=== PATIENT | male | born 1945 | race Caucasian/White ===

== ENCOUNTER → 2021-01-04 13:22 | Outpatient (BNVA) | payer MEDICARE, OTHER, SELFPAY | PROVIDERS: Visit Provider Orthopaedic Surgery | DX: M54.2 Cervicalgia (principal); M47.892 Other spondylosis, cervical region | CPT/HCPCS: 72050 ==

== ENCOUNTER → 2021-01-12 11:14 | Outpatient (BNVA) | payer MEDICARE, OTHER, SELFPAY | PROVIDERS: Visit Provider Orthopaedic Surgery | DX: Z01.812 Encounter for preprocedural laboratory examination (principal); Z20.822 Contact with and (suspected) exposure to COVID-19 | CPT/HCPCS: 87635 ==

== ENCOUNTER → 2021-01-12 13:10 | Day surgery (SDC) | payer MEDICARE, OTHER, SELFPAY | PROVIDERS: Visit Provider Orthopaedic Surgery | DX: Z01.818 Encounter for other preprocedural examination (principal); Z20.822 Contact with and (suspected) exposure to COVID-19 | CPT/HCPCS: 80053; 85025; 93005 ==

== ENCOUNTER 2021-01-19 10:33 | Inpatient (IN) | payer MEDICARE, OTHER, SELFPAY ==
[2021-01-12 12:08] VITALS: BMI 23.6
--- NOTE | 2021-01-12 13:10 | ECG_ITS ---
[facility] Test Date: 2021-01-12 Pat Name: Brian Loza Department: Room: Gender: Male Application Analyst: : 1945 Requested By: Harley Dale Order Number: [id number] Reading MD: TIMOTHY OCHOA Measurements Intervals Rose Rate: 49 P: 65 VA: 221 QRS: 9 QRSD: 141 T: 30 QT: 463 QTc: 419 Interpretive Statements SINUS BRADYCARDIA WITH FIRST DEGREE AV BLOCK WITH OCCASIONAL SUPRAVENTRICULAR PREMATURE COMPLEXES RIGHT BUNDLE BRANCH BLOCK [120+ ms QRS DURATION, UPRIGHT V1, 40+ ms S IN I/aVL/V4/V5/V6] No previous ECG available for comparison Electronically Signed On 01-13-2021 20:25:01 CDT by TIMOTHY COHOA [email or web address]
[2021-01-12 13:57] LABS: Basophils # 0.1 10^3/uL (0.0-0.1); Basophils % 0.7 %; Eosinophils # 0.3 10^3/uL (0.0-0.8); Eosinophils % 4.1 %; Hematocrit 33.5 % (42.0-52.0); Hemoglobin 10.9 g/dL (11.7-16.6); Lymphocytes # 1.6 10^3/uL (0.8-4.8); Lymphocytes % 21.6 %; Mean Corpuscular HGB Conc 32.5 g/dL (30.0-36.0); Mean Corpuscular Volume 98.2 fL (80-94); Mean Platelet Volume 11.8 fL (7.4-10.4); Monocytes # 0.6 10^3/uL (0.2-0.9); Monocytes % 8.1 %; Neutrophils % 65.2 %; Nucleated Red Blood Cells % 0 %; Platelet Count 186 10^3/cmm (130-400); Red Blood Count 3.41 10^6/uL (4.1-5.3); White Blood Count 7.5 10^3/uL (4.0-10.0)
[2021-01-12 14:29] LABS: Alanine Aminotransferase 14 U/L (0-41); Albumin Level 4.3 g/dL (3.5-5.2); Alkaline Phosphatase 55 IU/L (40-130); Anion Gap 13.8 (5-19); Aspartate Amino Transferase 15 U/L (0-40); Blood Urea Nitrogen 25 mg/dL (8-23); Calcium 8.7 mg/dL (8.5-10.5); Carbon Dioxide 24 mmol/L (22-29); Chloride 107 mmol/L (98-107); Globulin 2.3 g/dL (1.3-4.6); Glucose 74 mg/dL (65-115); Osmolality Calculated 293 mOsm/kg (285-295); Potassium 4.8 mmol/L (3.5-5.1); Sodium 140 mmol/L (136-145); Total Bilirubin 0.4 mg/dL (0.15-1.2); Total Protein 6.6 g/dL (6.6-8.7)
--- NOTE | 2021-01-12 15:57 | ANES.PREANE2 ---
Pre-Anesthetic Assessment Pre-Anesthetic Assessment: Height/Weight: Height 1.75 m Weight 72.575 kg Preop Diagnosis: cervical spondylosis with myelopathy Proposed Procedure: Operation Date: 01/19/21 07:00 Proposed Procedures p ACDF 10/12 11/13 12/14 85331, 37443, 19989, 09358, 98002 M47.12(Not Applicable) - Harley Robertson, DO Was Beta Jennifer taken within 24 hours: Yes Was Clonidine taken within 24 hours: N/A Social: Social History: No alcohol and No tobacco Exam: Pre-Anes Outpt Exam: alert, oriented x 3, clear to auscultation bilaterally and regular rate & rhythm Airway: Submandibular: WNL Cervical ROM: WNL MP: 2 Dentition: False (upper) CV/HEM: CV/HEM: CAD and HTN Comments: Good functional status Anesthetic Plan: ASA status: 3 Anesthesia: General Risk of > 500 ml blood loss (7ml/kg in children): No PFSH Anesthesia PFSH: Social History (Updated 01/04/21 @ 13:59 by Pedro Randolph LPN) Smoking and tobacco status: current every day smoker Data Anesthesia CBC & Chem 7: 01/12/21 12:40 01/12/21 12:40 Other Labs: Laboratory Results - last 48 hr 01/12/21 01/12/21 12:40 12:40 WBC 7.5 RBC 3.41 L Hgb 10.9 L Hct 33.5 L MCV 98.2 H MCH 32.0 MCHC 32.5 RDW 13.0 Plt Count 186 MPV 11.8 H Neut % (Auto) 65.2 Lymph % (Auto) 21.6 [place] % (Auto) 8.1 Eos % (Auto) 4.1 Baso % (Auto) 0.7 Neut # (Auto) 4.90 Lymph # (Auto) 1.6 [place] # (Auto) 0.6 Eos # (Auto) 0.3 Baso # (Auto) 0.1 Nucleated RBC % (auto) 0 Nucleated RBCs # 0.0 Sodium 140 Potassium 4.8 Chloride 107 Carbon Dioxide 24 Anion Gap 13.8 BUN 25 H Creatinine 0.9 GFR Calculation Not Reportable Glucose 74 Calculated Osmolality 293 Calcium 8.7 Total Bilirubin 0.4 AST 15 ALT 14 Alkaline Phosphatase 55 Total Protein 6.6 Albumin 4.3 Globulin 2.3 Cardiac Studies: No Data to Display
[2021-01-19] VITALS (17 sets, daily range): BP systolic 139–188; BP diastolic 62–98; PULSE 50–65; RESP 15–20; TEMP 36.3–36.9; O2SAT 95–100
--- NOTE | 2021-01-19 | XR_ITS ---
WS: [id number] Cervical spine, C-arm fluoroscopy, 01/19/2021 Clinical Data: acdf 10/12 11/13 12/14 Comparison: Cervical spine, 01/04/2021. Findings: Patient has an anterior cervical disc fusion from C3 through C6. Artificial disc spacers [place] ve been placed at C3-C4, C4-C5 and C5-C6. XR/XR cervical spine 3V* 36591 Impression: Anterior cervical disc fusion from C3 through C6.
--- NOTE | 2021-01-19 | SCC_ITS ---
Procedure Done: 1. Anterior diskectomy C3/4 2. Anterior discectomy C4/5 3. Anterior discetomy C5/6 4. Insertion of cage C3/4 3. Insertion of cage C4/5 4. Insertion of Cage C5/6 5. Instrumentation with anterior plate from C3-6 6. Use of allograft 39.3 seconds of fluoroscopic guidance, for a cumulative dose of 2.54 mGy, was provided to Dr. Robertson by the radiology department. C-arm images of the cervical spine were saved for the patient's permanent record. LILLIAM
[2021-01-19] MEDS: sodium chloride 0.9% 1,000 ML 30 ML IV (06:18)
--- NOTE | 2021-01-19 06:52 | W.PM.OPSUD ---
Surgery/Procedure H&P Update DATE OF PROCEDURE: January 19, 2021 DATE H&P PERFORMED: 01/04/21 H&P UPDATE INFORMATION: I have reviewed H&P completed within last 30 days, I have examined patient prior to procedure and No changes to prior documentation PREOP DIAGNOSIS: cervical spondylosis with myelopathy PLANNED PROCEDURE: Operation Date: 01/19/21 07:00 Proposed Procedures p ACDF 10/12 11/13 12/14 20669, 68135, 24990, 75435, 35121 M47.12(Not Applicable) - Harley Robertson DO
--- NOTE | 2021-01-19 10:16 | PM.OP ---
Operative Report Date of procedure: January 19, 2021 Pre-op Diagnosis: cervical spondylosis with myelopathy Post-op diagnosis: same Procedure Done: 1. Anterior diskectomy C3/4 2. Anterior discectomy C4/5 3. Anterior discetomy C5/6 4. Insertion of cage C3/4 3. Insertion of cage C4/5 4. Insertion of Cage C5/6 5. Instrumentation with anterior plate from C3-6 6. Use of allograft Anesthesia: General Estimated blood loss (mL): 25 Condition: stable Disposition: PACU Procedure: The patient was taken to the operating room, where he underwent general endotracheal anesthesia without complications. He was then positioned supine on the operating table, and all areas of impingement were well padded. The arms were carefully padded and tucked at his sides. A roll was placed between the shoulder blades.. An x-ray was done to determine the appropriate level for the skin incision. The entire neck was then sterilely prepped and draped in the usual fashion. Neuromonitoring was attached prior to prepping. A transverse skin incision was made and carried down to the platysma muscle. This was then split in line with its fibers. Blunt dissection was carried down medial to the carotid sheath and lateral to the trachea and esophagus until the anterior cervical spine was visualized. A needle was placed into a disc and an x-ray was done to determine its location. The longus colli muscles were then elevated bilaterally with the electrocautery unit. Self-retaining retractors were placed deep to the longus colli muscle. Attention was brought to the C3/4 level that was confirmed on x-ray. The microscope was then brought in. A radical anterior discectomies were performed at C3/4. This included complete removal of the anterior annulus, nucleus, and posterior annulus. The posterior longitudinal ligament was removed as were the posterior osteophytes. Foraminotomies were then accomplished bilaterally. This was done using a high speed isha, kerrison rongeurs and curretes Once all of this was accomplished, the curved currette was used to check for any residual compression. The central canal was wide open as were the foramen. A high-speed bur was used to remove the cartilaginous endplates above and below the interspace. Bleeding cancellous bone was exposed. The disc space were measured and appropriate size cage were placed sterilely onto the field. Allograft graft was packed into the cages. The cage was then placed and there was good juxtaposition against the bleeding decorticated surfaces and good distraction of each interspace. Attention was brought to the next interspace. Attention was brought to the C4/5 level that was confirmed on x-ray. A caspar pin was placed into the C4 vertebrae and the C5 vertebrae. The disk space was then distracted. The microscope was then brought in. A radical anterior discectomies were performed at C4/5. This included complete removal of the anterior annulus, nucleus, and posterior annulus. The posterior longitudinal ligament was removed as were the posterior osteophytes. Foraminotomies were then accomplished bilaterally. This was done using a high speed isha, kerrison rongeurs and curretes Once all of this was accomplished, the curved currette was used to check for any residual compression. The central canal was wide open as were the foramen. A high-speed bur was used to remove the cartilaginous endplates above and below the interspace. Bleeding cancellous bone was exposed. The disc space were measured and appropriate size cage were placed sterilely onto the field. Allograft graft was packed into the cages. The cage was then placed and there was good juxtaposition against the bleeding decorticated surfaces and good distraction of each interspace. Attention was brought to the next interspace. Attention was brought to the C5/6 level that was confirmed on x-ray. A caspar pin was placed into the C5 vertebrae and the C6 vertebrae. The disk space was then distracted. The microscope was then brought in. A radical anterior discectomies were performed at C5/6. This included complete removal of the anterior annulus, nucleus, and posterior annulus. The posterior longitudinal ligament was removed as were the posterior osteophytes. Foraminotomies were then accomplished bilaterally. This was done using a high speed isha, kerrison rongeurs and curretes Once all of this was accomplished, the curved currette was used to check for any residual compression. The central canal was wide open as were the foramen. A high-speed bur was used to remove the cartilaginous endplates above and below the interspace. Bleeding cancellous bone was exposed. The disc space were measured and appropriate size cage were placed sterilely onto the field. Allograft graft was packed into the cages. The cage was then placed and there was good juxtaposition against the bleeding decorticated surfaces and good distraction of each interspace. Attention was brought to the next interspace. The [place] pins were removed. Bone wax was used to prevent any bleeding from occurring at the pin sites. The appropriate size anterior cervical locking plate was chosen and bent into gentle lordosis. Two screws were then placed into each of the vertebral bodies at C3 and C4 and C5 and C6. There was excellent purchase. A final x-ray was done confirming good position of the hardware and Cages. The locking screws were then applied, also with excellent purchase. Following a final copious irrigation, there was good hemostasis and no dural leaks. The carotid pulse was strong. The wounds were then closed in layers using 2-0 Vicryl suture for the platysma muscle, 2-0 Vicryl suture for the subcutaneous tissue, and 4-0 monocryl suture in a subcuticular skin closure. Glue was placed followed by application of a sterile dressing. The drain was hooked to bulb suction. A soft collar was applied. The patient was then carefully returned to the supine position on his hospital bed where he was reversed and extubated and taken to the recovery room having tolerated the procedure well.
[2021-01-19] MEDS: lactated ringers 1,000 ML 90 ML IV ×2 (11:03→22:51)
[2021-01-19] MEDS: ketorolac 30 mg/mL INJ IVP ×2 (12:25→22:54)
[2021-01-19] MEDS: HYDROcodone-acetaminophen 5-325 mg Tablet PO ×2 (13:59→17:27)
[2021-01-20] VITALS (7 sets, daily range): BP systolic 108–178; BP diastolic 62–72; PULSE 56–66; RESP 14–20; TEMP 36.3–37.4; O2SAT 93–96
--- NOTE | 2021-01-20 07:32 | PC.NURSE ---
Patient has been confused and disoriented through the night.
--- NOTE | 2021-01-20 08:04 | PM.PN ---
Subjective Subjective: Interval history: Patient is somewhat confused this morning. But is acting appropriately. He was unsure of where he was with the nurse started questioning him initially. He is answering my questions appropriately in the room. He was able ambulate last night he has some swallowing issues at this point. Vitals/I&O/Wt Last Vital Signs Temp 98.5 F 01/20/21 04:00 Pulse 63 01/20/21 04:00 Resp 16 01/20/21 04:00 BP 146/68 01/20/21 04:00 Pulse Ox 94 01/20/21 04:00 01/19/21 01/20/21 01/20/21 22:59 06:59 14:59 Intake Total 1170 / 2220 50 / 2270 50 / 50 Balance 1170 / 2170 50 / 2220 50 / 50 Physical Exam Narrative: EXAM NARRATIVE: Patient states that the symptoms he is having at this point to have difficulty with some swallowing he was able eat some food last night. The J collar is in place. Data : 01/12/21 12:40 01/12/21 12:40 A&P Assessment and plan (1) Cervical stenosis of spinal canal: Patient is postop day 1 C3-4 C4-5 C5-6 ACDF. We will plan to discharge if he is able to eat breakfast and get up with physical therapy and feels comfortable taking him home. Status: Acute Attestations Medical Necessity Statement*: Patient is okay to discharge from my standpoint if he is able to get up with therapy this morning any breakfast. Coding Level of Care Code Acute Ceramic Sprayer for Jessika Landis Diagnoses Cervical stenosis of spinal canal M48.02
[2021-01-20] MEDS: ketorolac 30 mg/mL INJ IVP ×2 (08:37→17:30)
[2021-01-20] MEDS: ondansetron 2 mg/ML SDV 2 mL 4 MG IVP (08:37)
[2021-01-20] MEDS: docusate sodium 100 mg Capsule PO (08:37)
[2021-01-20] MEDS: cetylpyridinium Lozenge 1 EACH MUCOUS MEM (16:20)
[2021-01-20] MEDS: lactated ringers 1,000 ML 90 ML IV (16:24)
[2021-01-20] MEDS: morphine 4 mg/mL SDV 1 mL 2 MG IVP (20:17)
[2021-01-21] VITALS (8 sets, daily range): BP systolic 156–190; BP diastolic 63–80; PULSE 59–73; RESP 16–19; TEMP 37.2–37.7; O2SAT 90–95
[2021-01-21] MEDS: lactated ringers 1,000 ML 90 ML IV ×2 (03:08→14:59)
[2021-01-21] MEDS: morphine 4 mg/mL SDV 1 mL 2 MG IVP (04:26)
--- NOTE | 2021-01-21 08:54 | PC.NURSE ---
Rcvd order from Dr Robertson to crush meds and pureed diet. conventional mortgage underwriter put orders in.
--- NOTE | 2021-01-21 08:55 | PC.NURSE ---
rcvd verbal okay for collar to be off while laying and sitting and on while walking from Dr Robertson.
--- NOTE | 2021-01-21 09:02 | P.PN_ITS ---
Subjective Subjective: Interval history: patient is having increased secretions, able to swallow water Vitals/I&O/Wt Last Vital Signs Temp 99.1 F 01/21/21 08:00 Pulse 73 01/21/21 08:00 Resp 18 01/21/21 08:00 BP 158/80 01/21/21 08:00 Pulse Ox 90 01/21/21 08:00 01/20/21 01/21/21 01/21/21 22:59 06:59 14:59 Intake Total 1079 966 / 2045 Balance 1079 6 / 2045 Physical Exam Narrative: EXAM NARRATIVE: 12/13 strength Data : 01/12/21 12:40 01/12/21 12:40 A&P Assessment and plan (1) Cervical stenosis of spinal canal: difficulty swallowing and increased secretions switch to puried diet stop morphine crush up hydrocodone ok to take collar off while sitting or in bed Status: Acute Attestations Medical Necessity Statement*: difficulty swallowing Coding Level of Care Code Acute Pole Incisor Operator for Jessika Landis Diagnoses Cervical stenosis of spinal canal M48.02
[2021-01-21] MEDS: aspirin 81 mg EC Tablet PO (10:03)
[2021-01-21] MEDS: atorvastatin 40 mg Tablet PO (10:04)
[2021-01-21] MEDS: metoprolol succinate ER (24 HR) 25 mg Tablet PO (10:04)
[2021-01-21] MEDS: docusate sodium 100 mg Capsule PO ×2 (10:04→17:11)
[2021-01-21] MEDS: HYDROcodone-acetaminophen 5-325 mg Tablet PO ×2 (14:17→18:36)
[2021-01-21] MEDS: guaiFENesin 600 mg Tablet PO (17:11)
--- NOTE | 2021-01-21 17:23 | P.CONIM_ITS ---
Providers/Reason For Consult Consulting Physician/Specialty*: Medicine Reason for Consult*: Respiratory distress Attending Physician: Harley Robertson DO History of Present Illness History of Present Illness 75 year old with past medical history of hypertension, hyperlipidemia, tobacco abuse, chronic obstructive pulmonary disease, and cervical spinal stenosis who was admitted to hospital for surgical intervention (anterior diskectomy C3/4,C4/5,C5/6, cage insertion C3/4,C4/5,C5/6, Instrumentation w/ant plate from c3-6 on 01/19/21). Medicine was consulted for eval of respiratory distress. Post op patient was noted to have increase respiratory distress and productive cough. No fever or chills. Did receive pre-op abx. Using neb at home including Breo which is not on formulary. Noted difficulty taking deep inspiration with cervical collar. Review of Systems General: Reports: 10 or more systems reviewed and unremarkable except in HPI and below Meds/Allergies Home Medications and Allergies Home Medications Medication Instructions Recorded Confirmed Last Taken Type aspirin 81 mg tablet,delayed 81 mg PO DAILY 01/04/21 01/19/21 01/16/21 History release fluticasone furoate 100 1 inh INHALATION DAILY 01/04/21 01/19/21 01/17/21 History mcg-vilanterol 25 mcg/dose inhalation powder metoprolol succinate 25 mg 25 mg PO DAILY 01/04/21 01/19/21 01/19/21 05:30 History tablet,extended release 24 hr nitroglycerin 2.5 mg 2.5 mg PO BID 01/04/21 01/12/21 Unknown History capsule,extended release simvastatin 80 mg tablet 80 mg PO DAILY 01/04/21 01/19/21 01/18/21 History hydrocodone-acetaminophen 1 - 2 tab PO .Q4-6H #40 tab 01/20/21 Unknown Rx Allergies Allergy/AdvReac Type Severity Reaction Status Date / Time No Known Allergies Allergy Verified 01/12/21 12:02 Current Medications Current Medications Generic Name Dose Route Start Last Admin Trade Name Freq PRN Reason Stop Dose Admin Hydrocodone Bitart/Acetaminophen 1 - 2 tab 01/19/21 10:09 01/21/21 14:17 Hydrocodone-Acetaminophen 5-325 Mg Tablet PO 2 tab Q4H PRN Administration MODERATE TO SEVERE PAIN Aspirin 81 mg 01/20/21 09:00 01/21/21 10:03 Aspirin 81 Mg Ec Tablet PO 81 mg DAILY MISSY Administration Atorvastatin Calcium 40 mg 01/20/21 09:00 01/21/21 10:04 Atorvastatin 40 Mg Tablet PO 40 mg DAILY [facility] Administration Benzocaine 1 each 01/20/21 15:49 01/20/21 16:20 Cetylpyridinium Lozenge MUCOUS MEM 1 each Q2H PRN Administration SORE THROAT Docusate Sodium 100 mg 01/19/21 18:00 01/21/21 17:11 Docusate Sodium 100 Mg Capsule PO 100 mg BID MISSY Administration Guaifenesin 600 mg 01/21/21 18:00 01/21/21 17:11 Guaifenesin 600 Mg Tablet PO 600 mg BID MISSY Administration Lactated Ringer's 1,000 mls @ 90 mls/hr 01/19/21 10:15 01/21/21 14:59 Lactated Ringers IV 90 mls/hr .Q11H7M [facility] Administration Metoprolol Succinate 25 mg 01/20/21 09:00 01/21/21 10:04 Metoprolol Succinate Er (24 Hr) 25 Mg Tablet PO 25 mg DAILY [facility] Administration Morphine Sulfate 2 mg 01/20/21 16:51 01/21/21 04:26 Morphine 4 Mg/Ml Sdv 1 Ml IVP 2 mg Q4H PRN Administration SEVERE PAIN Nitroglycerin 2.5 mg 01/19/21 18:00 01/21/21 17:11 Nitroglycerin Er 2.5 Mg Capsule PO Not Given BID [facility] Non-Formulary Medication 1 inh 01/20/21 09:00 01/21/21 14:32 Fluticasone Furoate-Vilanterol [Breo Ellipta] INHALATION Not Given DAILY [facility] Ondansetron HCl 4 mg 01/19/21 10:09 01/20/21 08:37 Ondansetron 2 Mg/Ml Sdv 2 Ml IVP 4 mg Q6H PRN Administration NAUSEA AND VOMITING PFSH Acute PFSH: Medical History (Updated 01/21/21 @ 17:46 by Gustavo Caro MD) Accelerated essential hypertension COPD (chronic obstructive pulmonary disease) Social History Smoking and tobacco status: current every day smoker Vitals/I&O/Wt Last Vital Signs Temp 99.8 F H 01/21/21 15:59 Pulse 65 01/21/21 15:59 Resp 17 01/21/21 15:59 BP 174/72 01/21/21 15:59 Pulse Ox 94 01/21/21 15:59 01/21/21 01/21/21 01/21/21 06:59 14:59 22:59 Intake Total 962045 1000 / 1000 Balance 2045 1000 / 1000 Physical Exam Narrative: EXAM NARRATIVE: General: Alert awake, cervical collar. HEENT : Cervical Collar CVS: RRR, No murmur, rubs or gallops Chest : Course breath sounds, bilaterally Abd: Non-distended Ext: No edema A&P Assessment and plan (1) Cervical stenosis of spinal canal: Status: Acute Acute Respiratory Distress due to COPD - Supplemental o2 as needed - DuoNeb q6hr scheduled - Breo not on formulary - Advair 1 puff BID while inpatient - Empirically started on Levofloxacin 500 mg PO daily - Mucinex 600 mg PO BID - Sputum culture - Chest x-ray in AM - Home o2 eval prior to d/c - Will hold of steroids for now - Nicotine patch PRN Cervical Spondylosis with myelopathy, POD# 2 - Management per orthopedic surgery Hypertension - Metoprolol 25 mg ER daily - Asa 81 mg PO daily Dyslipidemia - Lipitor 40 mg PO daily DVT ppx - SCDS Consult Attestations Medical Necessity Statement: Will require further hospitalization for management of COPD related respiratory distress. Time Spent in Patient Care: Greater than 35 minutes (>than 50% of time spent in counselling and/or direct pt care on unit) . Coding Level of Care Code Acute Fur Liner for Jessika Landis Diagnoses Cervical stenosis of spinal canal M48.02
[2021-01-21] MEDS: ipratropium-albuterol 3 mL Neb INHALATION (20:22)
[2021-01-21] MEDS: nicotine 14 mg Patch 1 PATCH TRANSDERMA (22:02)
[2021-01-22] VITALS (13 sets, daily range): BP systolic 136–191; BP diastolic 67–77; PULSE 70–91; RESP 18–24; TEMP 32.7–37.5; O2SAT 90–96
[2021-01-22] MEDS: morphine 4 mg/mL SDV 1 mL 2 MG IVP (00:20)
[2021-01-22] MEDS: cetylpyridinium Lozenge 1 EACH MUCOUS MEM (02:07)
[2021-01-22] MEDS: ipratropium-albuterol 3 mL Neb INHALATION ×3 (02:58→15:28)
[2021-01-22] MEDS: HYDROcodone-acetaminophen 5-325 mg Tablet PO ×3 (03:39→16:05)
--- NOTE | 2021-01-22 07:08 | PM.PN ---
Subjective Subjective: Interval history: patient and resting in bed Vitals/I&O/Wt Last Vital Signs Temp 99.0 F 01/22/21 04:00 Pulse 80 01/22/21 04:00 Resp 19 H 01/22/21 04:00 BP 191/77 01/22/21 04:00 Pulse Ox 95 01/22/21 04:00 01/21/21 01/22/21 01/22/21 22:59 06:59 14:59 Intake Total 454.5 / 1454.5 Balance 454.5 / 1454.5 Data : 01/12/21 12:40 01/12/21 12:40 A&P Assessment and plan (1) Cervical stenosis of spinal canal: will re-evalute later this morning Status: Acute Attestations Medical Necessity Statement*: awaiting chest x-ray Coding Level of Care Code Acute Hr Generalist for Jessika Landis Diagnoses Cervical stenosis of spinal canal M48.02
[2021-01-22] MEDS: levoFLOXacin 500 mg Tablet PO (09:07)
[2021-01-22] MEDS: nicotine 14 mg Patch 1 PATCH TRANSDERMA (09:07)
[2021-01-22] MEDS: docusate sodium 100 mg Capsule PO (09:07)
[2021-01-22] MEDS: metoprolol succinate ER (24 HR) 25 mg Tablet PO (09:07)
[2021-01-22] MEDS: aspirin 81 mg EC Tablet PO (09:07)
[2021-01-22] MEDS: guaiFENesin 600 mg Tablet PO (09:07)
[2021-01-22] MEDS: atorvastatin 40 mg Tablet PO (09:07)
--- NOTE | 2021-01-22 10:11 | PC.NURSE ---
patient taken to CT
--- NOTE | 2021-01-22 11:27 | XR_ITS ---
WS: [id number] Exam: XR chest 1V portable [id number] Date/Time of Exam: 01/22/2021 11:27 AM Reason For Exam: difficulty swallowing and increased secretions. No priors. There is interstitial infiltrates in the right lower lung zone. This could represent active pneumonia or chronic change. Left lung is clear. No pleural effusions. Heart size is normal. The mediastinum i s not widened. Signs of previous CABG surgery. Regional bony structures are intact. XR/XR chest 1V portable [id number] IMPRESSION: 1. Mild diffuse infiltrate in the right lower lung zone that may represent acti ve pneumonia or chronic change.
--- NOTE | 2021-01-22 11:27 | PC.NURSE ---
Per Dr Robertson, waiting chest xray. Assembler Musical Equipment checked and didn't see order for chest xray. automotive service writer entered order.
--- NOTE | 2021-01-22 13:09 | PM.PN ---
Subjective Subjective: Interval history: smokes due to anxiety. now 1ppd was at 2ppd. does't want to eat. ? anxiety preventing. Medications: Reviewed: Yes Vitals/I&O/Wt Last Vital Signs Temp 99.0 F 01/22/21 11:55 Pulse 80 01/22/21 11:55 Resp 20 H 01/22/21 11:55 BP 136/67 01/22/21 11:55 Pulse Ox 91 01/22/21 11:55 01/21/21 01/22/21 01/22/21 22:59 06:59 14:59 Intake Total 454.5 / 1454.5 Balance 454.5 / 1454.5 Physical Exam Narrative: EXAM NARRATIVE: roughly appears stated age. mild distress due to anxiety and trouble breathing. H reg loud systolic murmur heard best at LLSB L diminihsed thoughout with poor expiratory phase, wheezes thorughtout in exp A soft nt/nd nl BS E no edema Data : 01/12/21 12:40 01/12/21 12:40 A&P Assessment and plan (1) COPD (chronic obstructive pulmonary disease): on home meds says on home oxygen unknown liters educated on incentive spirometry. Status: Acute (2) Anxiety: start lexapro for termite exterminator helper and use valium in short term Status: Acute (3) Tobacco abuse: wants to quit. on nicotine patch. Will be on lexapro for tobacco cessation as addiction is most likely due to anxiety/depression Status: Acute Attestations Medical Necessity Statement*: Pt will need to be eating prior to discharge. Hopefully with addition of valium will start to eat. Coding Level of Care Code Acute Driver'S License Examiner for Jessika Fwd Diagnoses COPD (chronic obstructive pulmonary disease) J44.9 Anxiety F41.9 Tobacco abuse Z72.0
--- NOTE | 2021-01-22 15:30 | PC.NURSE ---
patient is able to eat ice cream, drink fluids and take pills halved with no difficulty.
--- NOTE | 2021-01-22 15:33 | PC.NURSE ---
Per Dr Robertson, he spoke with hospitalist and patient is good to be discharged today.
--- NOTE | 2021-01-22 16:59 | PC.NURSE ---
discharge instructions given to patient and . both verbalized understanding of instructions. patient taken to private vehicle via wheelchair by staff.
--- NOTE | 2021-01-22 17:44 | PC.RESP ---
Smoking Cessation information sent to patient.
--- NOTE | 2021-01-23 13:49 | P.DS_ITS ---
Discharge Providers Date of Admission: 01/21/21 17:55 Date of Discharge: January 23, 2021 Attending Provider at Admission: Harley Robertson DO Attending Provider at Discharge: Harley Robertson DO Diagnoses at Discharge Discharge Diagnosis (1) COPD (chronic obstructive pulmonary disease): Status: Acute (2) Anxiety: Status: Acute (3) Tobacco abuse: Status: Acute Reason for Visit Reason for Visit: ACDF 10/12 4/12/14 [id number], [id number], [id number], [id number], [id number] Hospital Course Hospital Course Patient was admitted on 01/19/2021. Patient stayed overnight. Patient had difficulty swallowing the next day and was having increased secretions. I like to keep him overnight got a hospitalist consult on Friday the patient began to be able to swallow his pills on Friday the and then he was discharged. Other than swallowing issues patient had no other issues. Discharge Data Data Completed and Pending: Completed Studies During Hospitalization Category Date Time Status XR cervical spine 3V* [id number] Routine Exams 01/19/21 Completed XR chest 1V jonna ble [id number] Routine Exams 01/22/21 11:27 Completed Vitals: Last Vital Signs Temp 91 F L 01/22/21 17:00 Pulse 91 01/22/21 17:00 Resp 18 01/22/21 17:00 BP 165/75 01/22/21 17:00 Pulse Ox 92 01/22/21 17:00 Discharge Plan Discharge Patient Disposition: Home Condition: Stable Prescriptions: New hydrocodone-acetaminophen 5-325 mg tablet 1 - 2 tab PO .Q4-6H Qty: 40 RF: 0 Lexapro 10 mg tablet 10 mg PO DAILY Qty: 30 RF: 0 Continued aspirin 81 mg tablet,delayed release (DR/EC) 81 mg PO DAILY RF: 0 Breo Ellipta 100-25 mcg/dose blister with device 1 inh inhalation DAILY RF: 0 metoprolol succinate 25 mg tablet extended release 24 hr 25 mg PO DAILY RF: 0 nitroglycerin [Nitro-Time] 2.5 mg capsule, extended release 2.5 mg PO BID RF: 0 simvastatin 80 mg tablet 80 mg PO DAILY RF: 0 Discharge Orders: Discharge Order (Routine); Ordered 01/20/21 Ordered By: Harley Robertson Other Ambulatory Orders: FUNMILAYO: Anthony (Order) Location: None Selected Ordered By: Harley Robertson Referrals: [facility] [place] [Outside] Harley Robertson, [Physician] - 02/06/21 10:15 am (Please contact Dr. Robertson's office Friday morning to make a follow-up appointment. ) Discharge Diet: Advance as tolerated Discharge Activity: Limit activity as instructed Patient Instructions: Hydrocodone/Acetaminophen (By mouth), Anterior Posterior Spinal Fusion (DC), Opioid Safety Activity Restrictions/Additional Instructions: Thank you for choosing [facility] for your care! The following is a list of instructions, from your provider, to follow upon your discharge to ensure you have the optimal recovery from your recent injury or surgery. Anterior Cervical Discectomy and Fusion: What to Expect at Home Your Recovery Follow-up care is a law part of your treatment and safety. Be sure to make and go to all appointments, and call your doctor if you are having problems. If you do not already have a follow-up appointment made, call office in the next 1-3 days to make follow up appointment for 2 weeks at [phone]. It is also a good idea to know your test results and keep a list of the medicines you take. You can expect your neck to feel stiff or sore after surgery. This should improve in the weeks after surgery. But it may take 4 to 6 months for you to get better completely. You may have trouble sitting or standing in one position for very long and may need pain medicine in the weeks after your surgery. It may take 4 to 6 weeks to get back to your usual activities, but it may depend on what kind of surgery you had. Your throat will feel sore and it may be difficult to swallow for the first 3 days after your surgery. As long as you can get liquids down without difficulty, this should slowly improve, otherwise call our office or seek medical attention if it becomes increasingly difficult to get anything down including liquids. Avoid hot liquids for first 3-5 days. Soothing foods/liquids such as jello, pudding, and luke warm soups are recommended until swallowing improves. Staying elevated will also help, it's advised you keep propped up at while sleeping to help reduce the swelling. You may use an ice pack directly on your incision or around it on the front of your neck, using a cloth to protect your skin; and a heating pad to the back of your neck as needed. Do not use over the counter anti-inflammatory medications (Ibuprofen, Motrin, Aleve, Advil, etc) Taking these meds after having a fusion can delay fusion rates, we recommend you avoid them for the first 3 [address]. Robertson may advise you to work with a physical therapist to strengthen the muscles around your neck and back - this will be discussed at your follow - up appointments. The pain or numbness you were having in your arms before surgery should get better or go away completely. This care sheet gives you a general idea about how long it will take for you to recover. But each person recovers at a different pace. Follow the steps below to get better as quickly as possible. How can you care for yourself at home? Activity ? Rest when you feel tired. Getting enough sleep will help you recover. ? Try to walk each day. Start by walking a little more than you did the day before. Bit by bit, increase the amount you walk. Walking boosts blood flow and helps prevent pneumonia and constipation. Walking may also decrease your muscle soreness after surgery. ? No lifting anything that is more that 5 pounds. This may include heavy grocery bags and milk containers, a heavy briefcase or backpack, cat litter or dog food bags, a child, or a vacuum grave cleaner. ? Avoid strenuous activities, such as bicycle riding, jogging, weightlifting, or aerobic exercise, until your doctor says it is okay. ? Do not drive until your follow-up visit after your surgery, or until your doctor says it isokay. ? Avoid taking long car trips for 2 to 4 weeks after surgery. Your neck may become tired and painful from sitting too long in one position. ? You will probably need to take 4 to 6 weeks off from work. It depends on the type of work you do and how you feel. ? You may have sex as soon as you feel able, but avoid positions that put stress on your neck or cause pain. Diet ? You can eat your normal diet. If your stomach is upset, try bland, low-fat foods like plain rice, broiled chicken, toast, and yogurt ? Drink plenty of fluids. If you have kidney, heart, or liver disease and have to limit fluids, talk with your doctor before you increase the amount of fluids you drink. ? You may notice that your bowel movements are not regular right after your surgery. This is common. Try to avoid constipation and straining with bowel movements. You may want to take a fiber supplement every day. If you have not had a bowel movement after a couple of days, ask your doctor about taking a mild laxative. Medicines ? Take pain medicines exactly as directed. 1. If Dr. Robertson gave you a prescription medicine for pain, take lt as prescribed. 2. Do not take two or more pain medicines at the same time unless the doctor told you to. Many pain medicines have acetaminophen, which is Tylenol. Too much acetaminophen {Tylenol) can be harmful. 3. If you think your pain pill is making you sick to your stomach: 4. Take your pills after meals (unless your doctor has told you not to). 5. Ask your Dr. for a different pain pill. Incisioncare ? Remove your dressing 48hours after your surgery. Ok to shower and get the incision wet. Do not overtly wash your incision. When done, pad dry, leave open to air thereafter. Avoid creams and ointments directly on your incision. ? Your sutures in the incision will dissolve and fall out on their own. ? Keep the area clean and dry. You may cover it with a gauze bandage if it weeps or rubs against clothing; if you choose to do this, change the dressing everyday. Other instructions ? Use a heating pad, hot water bottle, or gentle massage on your back to reduce stiffness. Avoid putting heat on your incision When should you call for help? ? Call 911 anytime you think you may need emergency care. For example, call if: ? You pass out (lose consciousness). ? You have sudden chest pain and shortness of breath, or you cough upblood. ? You cannot swallow. ? You have severe pain in your neck or back. ? Call your Dr. or seek immediate medical care if: ? You have pain that does not get better after you take pain pills. ? You have loose stitches, or your incision comes open. ? You have blood or fluid draining from the incision. ? You have signs of infection, such as: 1. Increased pain, swelling, warmth, or redness. 2. Red streaks leading from the site. 3. Pus draining from the site. 4. Swollen lymph nodes in your neck or armpits. 5. A fever. ? You have severe pain in your arms. ? You have new or increased weakness or numbness in your arms. ? Watch closely for any changes in your health, and be sure to contact your doctor if: ? You do not have a bowel movement after taking a laxative. Discharge Attestations Time Spent in Discharge Care*: less than 30 min Time Spent in Smoking Cessation: 3 to 10 minutes Quality Metrics Clinical Quality Measures During this hospital stay, did patient experience: None Coding Level of Care Code Acute g FW [place] note Diagnoses COPD (chronic obstructive pulmonary disease) J44.9 Anxiety F41.9 Tobacco abuse Z72.0
== END 2021-01-22 17:03 | disposition home or self-care (01) | DRG 982 ==
LOC: MEDSURG 10:34
PROVIDERS: Admitting Provider Orthopaedic Surgery; Visit Provider Orthopaedic Surgery
PROC: 0RB30ZZ Excision of Cervical Vertebral Disc, Open Approach (ICD-10-PCS; CPT 22551; principal; 2021-01-19 07:00)
DX: J44.9 Chronic obstructive pulmonary disease, unspecified (principal); M47.12 Other spondylosis with myelopathy, cervical region; M48.02 Spinal stenosis, cervical region; M47.22 Other spondylosis with radiculopathy, cervical region; R13.10 Dysphagia, unspecified; F41.9 Anxiety disorder, unspecified; F17.210 Nicotine dependence, cigarettes, uncomplicated; I10 Essential (primary) hypertension; E78.5 Hyperlipidemia, unspecified; Z79.82 Long term (current) use of aspirin
CPT/HCPCS: 36415; 71045; 72040; 76000; 80053; 85025; 94640; 97110; 97116; 97161; C1713; C9359; G0378; J0330; J0690; J1100; J1885; J2270; J2405; J2704; J3010; J3490; J7030

== ENCOUNTER 2021-02-26 11:27 | Outpatient (CLI) | payer MEDICARE, OTHER, SELFPAY ==
--- NOTE | 2021-02-26 11:32 | FL_ITS ---
WS: [id number] MODIFIED BARIUM SWALLOW HISTORY: Other dysphagia FLUOROSCOPY TIME: 3.4 minutes. Modified barium swallow was performed by the speech pathologist. Fluoroscopy was provided with the pa tient in a lateral projection. Multiple food consistencies were provided. Anterior cervical fusion extends from C3 through C7. Patient swallowed all food consistencies without too much difficulty. Very minimal trace aspiration n oted with thin liquids. Aspiration resolved with chin tuck maneuver. Food products became lodged at t he vallecula. Double swallows helped clear some of the residual from the vallecula. FL/FL barium swallow modifd [id number] IMPRESSION: 1. Trace aspiration with thin liquids resolved with chin to maneuver. 2. Incomplete clearing of the vallecula during swallowing. Please see speech therapist report also for recommendations.
== END 2021-02-26 11:28 | disposition home or self-care (01) ==
LOC: RAD 11:30
PROVIDERS: Visit Provider Nurse Practitioner Family
DX: J69.0 Pneumonitis due to inhalation of food and vomit (principal); R13.19 Other dysphagia
CPT/HCPCS: 74230; 92611

== ENCOUNTER → 2021-03-08 14:13 | Outpatient (BNVA) | payer MEDICARE, OTHER, SELFPAY | PROVIDERS: Visit Provider Orthopaedic Surgery | DX: M48.02 Spinal stenosis, cervical region (principal); Z98.1 Arthrodesis status | CPT/HCPCS: 72040 ==

== ENCOUNTER → 2021-04-19 11:47 | Outpatient (BNVA) | payer MEDICARE, OTHER, SELFPAY | PROVIDERS: Visit Provider Orthopaedic Surgery | DX: Z47.89 Encounter for other orthopedic aftercare (principal); Z98.1 Arthrodesis status | CPT/HCPCS: 72040 ==

== ENCOUNTER → 2024-05-20 14:25 | Outpatient (BNVA) | payer MEDICARE, OTHER, SELFPAY | PROVIDERS: Visit Provider Orthopaedic Surgery | DX: M54.9 Dorsalgia, unspecified (principal); M54.41 Lumbago with sciatica, right side; M54.42 Lumbago with sciatica, left side; G89.29 Other chronic pain | CPT/HCPCS: 72110; 99214 ==